=== PATIENT | male | born 1980 | race Caucasian/White ===

== ENCOUNTER 2019-03-10 06:25 | Day surgery (SDC) | payer OTHER ==
[2019-03-10] MEDS ORDERED: LACTATED RINGERS 1,000 ML IV ONE (06:39)
[2019-03-10] MEDS ORDERED: CEFAZOLIN SODIUM IN 0.9 % NACL 2 GM/100 ML BAG IV ONE (06:44)
--- NOTE | 2019-03-10 07:18 | ANESTHESIA ---
Pre-Anesthesia VS, & Labs - Diagnosis L index finger cyst - Procedure Cyst excision@L index finger Vital Signs: Temp Pulse Resp BP Pulse Ox 36.4 C L 70 16 133/94 H 100 03/10/19 06:46 03/10/19 06:46 03/10/19 06:46 03/10/19 06:46 03/10/19 06:46 Height 5 ft 5 in Weight (kg) 65.77 kg - NPO >8 hours Home Medications and Allergies Home Medications: Ambulatory Orders Ibuprofen [Motrin] 600 mg PO Q6H PRN 03/07/19 Ibuprofen [Motrin] 600 mg PO Q6H PRN 03/07/19 Allergies/Adverse Reactions: Allergies Allergy/AdvReac Type Severity Reaction Status Date / Time Sulfa (Sulfonamide Allergy Mild Unknown Verified 03/07/19 15:01 Antibiotics) Anes History & Medical History - Anesthetic History Anesthesia Complications: reports: No previous complications Family history of Anesthesia Complications: Denies Family history of Malignant Hyperthermia: Denies - Medical History Cardiovascular: reports: None Pulmonary: reports: None Gastrointestinal: reports: None Urinary: reports: None Musculoskeletal: reports: Other Endocrine/Autoimmune: reports: None Skin: reports: None Psychosocial: reports: Alcohol (socially) - Surgical History Eyes Ears Nose Throat (EENT): Other (wisdom teeth in office) Exam General: Alert, Oriented x3, Cooperative Dental: WNL Mouth Openin Fingerbreadth Neck Mobility: Normal Mallampati classification: II Thyromental Distance: 4-6 cm Respiratory: Lungs clear, Normal breath sounds, No respiratory distress Cardiovascular: Regular rate Neurological: Normal speech Cognitive Status: Within normal limits Plan Anesthesia Type: General, MAC Consent for Procedure(s) Verified and Reviewed: Yes Code Status: Attempt Resuscitation ASA classification: 2-Mild systemic disease Is this case an emergency?: No
[2019-03-10] MEDS ORDERED: BUPIVACAINE 0.25% PF 30 ML VIAL ONE (07:23)
[2019-03-10] MEDS ORDERED: BUPIVACAINE 0.25% PF 30 ML VIAL SUBQ ONE ×2 (08:09)
[2019-03-10] MEDS ORDERED: LIDOCAINE-MPF 1% 30 ML VIAL ONE (08:16)
[2019-03-10] MEDS ORDERED: LIDOCAINE-MPF 2% 5 ML VIAL IM ONE (08:30)
[2019-03-10] MEDS ORDERED: KETOROLAC 30 MG/ML VIAL IVP ONE (08:30)
[2019-03-10] MEDS ORDERED: fentaNYL 100 MCG/2 ML VIAL IVP ONE (08:30)
[2019-03-10] MEDS ORDERED: MIDAZOLAM 2 MG/2 ML VIAL IVP ONE (08:30)
[2019-03-10] MEDS ORDERED: PROPOFOL 200 MG/20 ML VIAL IVP ONE (08:30)
[2019-03-10] MEDS ORDERED: ONDANSETRON 4 MG/2 ML VIAL IVP PRN (09:04)
[2019-03-10] MEDS ORDERED: oxyCODONE 5 MG TABLET PO PRN (09:04)
--- NOTE | 2019-03-10 09:30 | OPERATIVE REPORT ---
Operative Report - General Procedure Date: 03/10/19 Planned Procedure: Left index finger volar cyst excision Pre-Op Diagnosis: Left index finger volar retinacular cyst Procedure Performed: Left index finger volar cyst excision Post Op Diagnosis: Left index finger volar retinacular cyst - Procedure Note Primary Surgeon: STEPHY GRAHAM Anesthesia Technique: Local, MAC Pathology: Left index finger volar cyst sent for permanent pathology Estimated Blood Loss (mL): 10 - Other Other Information/Narrative: Tourniquet Time: Approximately 22 minutes at 250mmHg. Specimen(s) Information: Left index finger volar cyst Complication(s): None Condition: Stable recover Indications for Surgery: The patient is a 38-year-old giwi-alzl-rjaqvpsy male with an approximately 5- month history of a volar left index finger mass. 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 His symptoms are worse with activity and improved by rest. Exam demonstrated an approximately 7 mm tender mass along the volar ulnar aspect of the proximal index finger near the web space. The mass was mobile in the dorsal volar plane less mobile proximally distally. The mass did not move with finger flexion and extension. There was a negative Tinel at the mass. MRI demonstrated a T2 hyperintense cystic lesion that appeared to arise from the flexor tendon sheath of the left index finger. The patient was counseled on treatment options to include continued nonoperative treatment in the form of activity modification, possible aspiration of the mass versus surgical excision. The mass was painful and symptomatic and the patient desired the most definitive treatment possible, so as to minimize the risk of recurrence following snf from the [place] in a year. Risks of surgery were discussed to include bleeding, infection, postoperative wrist stiffness, mass recurrence, damage to nerves, vessels, tendons, ligaments, bone and cartilage and anesthesia complications to include medication side effects and allergic reactions and even . After a long discussion, they wished to proceed. Findings: Left index finger cyst with clear gelatinous fluid, consistent with a volar retinacular cyst Descriptions of Procedure: The patient was met in the Preoperative Holding Area, at which time preoperative paperwork was confirmed. The left index finger was signed. The patient was then brought to Main Operating Room, placed supine on the Operating Room table. Monitored anesthesia care was initiated.The operative extremity was then prepped and draped over a hand table in the normal sterile fashion after a well-padded tourniquet was placed on the proximal arm. A surgical timeout was conducted to confirm the correct patient, correct extremity and correct procedure and to confirm that antibiotics consisting of 2 g cefazolin IV had been administered within 30 minutes of incision time. Local anesthesia was then induced utilizing an intrathecal block at the A1 sudha of the left index finger utilizing 5 mL of 1% lidocaine plain and 0.25% Marcaine plain mixed 50-50. Appropriate local anesthesia was confirmed by grasping the tissue with Adson forceps. An additional 3ml of local anesthetic w as used in areas of increased sensation. Once satisfied that the surgical site was adequately anesthetized, the operative extremity was then exsanguinated with an Esmarch bandage and tourniquet inflated to 250mmHg. A V-shaped Elle type incision with apex ulnar was marked over the distal palm and proximal phalanx and then made with a #15 blade through the skin. Dissection was further carried out with tenotomy scissors and retractors until the mass and volar aspect of the flexor tendon sheath was visualized. A full thickness flap was elevated from ulnar to radial. A Ragnall retractor was used to protect the ulnar neurovascular bundle. The mass was carefully dissected, removing all soft tissue attachments surrounding the mass, down to the flexor tendon sheath. The mass was then excised off of the flexor tendon sheath. A small window of the flexor tendon sheath was also excised. The mass ruptured during removal and contained homogeneous gelatinous material consistent with a volar retinacular cyst. The mass was then passed off the back table in a sterile specimen cup fixed in formalin. The finger was taken through range of motion to ensure good gliding of the tendons. The wound was then copiously irrigated. The tourniquet was let down, and manual pressure was held for 5 minutes. Bipolar electrocautery was then used for further hemostasis. The wound was again irrigated, and the skin was closed with 4-0 nylon in interrupted horizontal mattress fashion. An additional 3 mL of the local anesthetic mixture was injected around the incision. The wound was dressed with xeroform, plain 4x4 gauze, fluffs, and webril followed by a gently compressive Darshan bandage. The patient was then awakened from general anesthesia without complication, brought to the Post Anesthesia Care for further recovery. Postoperative Plan: 1. The patient will be discharged from the Same Day Surgery Unit when discharge criteria are met. 2. The patient will remain in the post-operative dressing for 5 days after which time they can remove it and shower. 3. They have been instructed to start early finger ROM and not to lift anything heavier than a pencil until follow-up. 4. Expect return to full activities in 4-6 weeks.
[2019-03-10 10:10] VITALS: BP 128/99
== END 2019-03-10 06:26 | disposition home or self-care (01) ==
LOC: SDS 06:25
PROVIDERS: ATTEND Orthopaedic Surgery
PROC: 0LB80ZZ Excision of Left Hand Tendon, Open Approach (ICD-10-PCS; principal; 2019-03-10 08:00)
DX: M67.442 Ganglion, left hand (principal)
CPT/HCPCS: 26160; A9270; J0690; J7120